=== PATIENT | male | born 1945 | race Caucasian/White ===

== ENCOUNTER 2018-11-13 13:46 | Emergency (ER) | payer BC, MEDICARE ==
--- NOTE | 2018-11-13 14:51 | ED ---
Lower Extremity Injury HPI - General Chief Complaint: Extremity Injury, Lower Stated Complaint: Bump on leg Time Seen by Provider: 11/13/18 14:18 Source: patient Mode of arrival: wheelchair Limitations: no limitations - History of Present Illness Initial Comments: Patient is a 73-year-old male complaining of right lower leg pain x one week after falling onto his front step. Admits to having a few abrasions along the lower leg and mild pain present. Patient states his pain is still there and there is some mild swelling present. Patient and patient's is concerned for a DVT. Patient admits to having A-fib and began on eliquest. Denies history of DVTs. Patient denies shortness of breath, chest pain. Patient has no other complaints at this time. - Related Data Allergies Allergy/AdvReac Type Severity Reaction Status Date / Time No Known Allergies Allergy Verified 11/13/18 14:05 Review of Systems ROS Statement: Those systems with pertinent positive or pertinent negative responses have been documented in the HPI. ROS Other: All systems not noted in ROS Statement are negative. Past Medical History Past Medical History: Atrial Fibrillation, Hypertension, Renal Disease History of Any Multi-Drug Resistant Organisms: None Reported Past Psychological History: No Psychological Hx Reported Smoking Status: Former smoker Past Alcohol Use History: None Reported Past Drug Use History: None Reported General Exam - General Exam Comments Initial Comments: GENERAL: Well-appearing, well-nourished and in no acute distress. HEAD: Atraumatic, normocephalic. EYES: Pupils equal round and reactive to light, extraocular movements intact, sclera anicteric, conjunctiva are normal. ENT: TMs normal, nares patent, oropharynx clear without exudates. Moist mucous membranes. NECK: Normal range of motion, supple without lymphadenopathy or JVD. LUNGS: Breath sounds clear to auscultation bilaterally and equal. No wheezes rales or rhonchi. HEART: Regular rate and rhythm without murmurs, rubs or gallops. ABDOMEN: Soft, nontender, normoactive bowel sounds. No guarding, no rebound. No masses appreciated. : Deferred EXTREMITIES: Normal range of motion, no pitting or edema. Mild pain over the medial aspect of the right tibia. Very small hematoma present. No erythema. No clubbing or cyanosis. NEUROLOGICAL: Cranial nerves II through XII grossly intact. Normal speech, normal gait. PSYCH: Normal mood, normal affect. SKIN: Warm, Dry, normal turgor, no rashes or lesions noted. Limitations: no limitations Course Vital Signs 11/13/18 14:02 Temperature 98.0 F Pulse Rate 70 Respiratory 18 Rate Blood Pressure 139/78 O2 Sat by Pulse 99 Oximetry Medical Decision Making - Medical Decision Making Patient is a 73-year-old male complaining of right lower leg pain after falling onto his porch step one week ago. Patient reports an increase in lower leg pain since the incident and is concerned for DVT. Patient has history of A. fib and is currently on eliquest. Right Lower leg x-ray shows no acute findings. Patient was counseled on hematoma. Discussed return parameters. Patient discharged home. Disposition Clinical Impression: Contusion of lower leg Disposition: HOME SELF-CARE Condition: Stable Instructions (If sedation given, give patient instructions): Contusion in Adults (ED) Additional Instructions: Please return to the Emergency Department if symptoms worsen or any other concerns. Is patient prescribed a controlled substance at d/c from ED?: No Referrals: Pelon Onofre III, MD [Primary Care Provider] - 1-2 days
--- NOTE | 2018-11-13 14:54 | XR ---
EXAMINATION TYPE: XR tibia fibula RT DATE OF EXAM: 11/13/2018 CLINICAL HISTORY: Right anterior tibia/fibula palpable abnormality. TECHNIQUE: Two views of the right leg are obtained. COMPARISON: None. FINDINGS: There is no acute fracture or dislocation seen in the right tibia or fibula. The right kn ee and ankle joints demonstrate mild joint space narrowing with mild tricompartmental osteophytes of the right knee. Overall there is mild osseous demineralization present. The overlying soft tissue oscar ears unremarkable. IMPRESSION: There is no acute fracture or dislocation seen in the right tibia or fibula. The palpabl e abnormality is not apparent on x-ray and creates no osseous erosion or periosteal reaction. This co uld be further evaluated with targeted ultrasound if there is further clinical concern.
[2018-11-13 15:36] VITALS: BP 131/83; PULSE 66; RESP 16; TEMP 98.1
== END 2018-11-13 15:38 | disposition home or self-care (01) ==
LOC: EC 13:46
DX: S80.11XA Contusion of right lower leg, initial encounter (principal); I48.91 Unspecified atrial fibrillation; Z87.891 Personal history of nicotine dependence; Z79.01 Long term (current) use of anticoagulants; W10.9XXA Fall (on) (from) unspecified stairs and steps, initial encounter; Y92.009 Unspecified place in unspecified non-institutional (private) residence as the place of occurrence of the external cause
CPT/HCPCS: 99283

== ENCOUNTER 2019-03-18 06:01 | Day surgery (SDC) | payer MEDICARE ==
[~2019-03-18 06:01] MED LIST: ALPRAZolam 0.25 MG TAB PO PRN; ALPRAZolam 0.5 MG TAB PO PRN; ASPIRIN 325 MG TAB PO STA; ATORVASTATIN 80 MG TAB PO STA; NITROGLYCERIN SL TABS 0.4 MG TAB SUBLINGUAL PRN; SODIUM CHLORIDE 0.9% 1,000 ML in EMPTY BAG 1 BAG IV ONE
[2019-03-18] MEDS: SODIUM CHLORIDE 0.9% 1,000 ML IV SCH ×2 (06:12→09:51)
[2019-03-18] MEDS ORDERED: VERAPAMIL 2.5 MG/ML 2 ML AMP ONE (07:31)
[2019-03-18] MEDS ORDERED: HEPARIN SODIUM 1,000 UN/ML (10ML VL) ONE (07:31)
[2019-03-18] MEDS ORDERED: LIDOCAINE 1% INJ 10MG/ML (20 ML MDV) ONE (07:31)
[2019-03-18] MEDS ORDERED: MIDAZOLAM PF (FBP) 2 MG/2 ML VIAL IV ONE (07:54)
[2019-03-18] MEDS ORDERED: LIDOCAINE 1% INJ 10MG/ML (20 ML MDV) SQ ONE (07:56)
[2019-03-18] MEDS: HEPARIN SODIUM 1,000 UN/ML (10ML VL) IV ONE ×2 (07:59→08:41)
[2019-03-18] MEDS: VERAPAMIL SYRINGE (5 MG/10 ML) INTRAARTER ONE ×2 (07:59→08:41)
[2019-03-18] MEDS ORDERED: CLOPIDOGREL 75 MG TAB ONE (08:27)
[2019-03-18] MEDS ORDERED: CLOPIDOGREL 75 MG TAB PO ONE (08:29)
[2019-03-18] MEDS: NITROGLYCERIN 1000MCG/10ML SYRINGE INTRACORON ONE ×2 (08:31→08:39)
[2019-03-18] MEDS ORDERED: IOPAMIDOL-370 125ML BTL INJ ONE ×3 (08:32→08:39)
[2019-03-18] MEDS ORDERED: ATROPINE SULFATE 0.1 MG/ML 10ML SYRINGE IV PRN (08:48)
[2019-03-18] MEDS ORDERED: NITROGLYCERIN SL TABS 0.4 MG TAB SUBLINGUAL PRN (08:48)
[2019-03-18] MEDS ORDERED: MAG HYDROX/AL HYDROX/SIMETH 30 ML CUP PO PRN (08:48)
[2019-03-18] MEDS ORDERED: RX INFO: IV CONTRAST WAS GIVEN 1 EACH MISC MISCELLANE PRN (08:48)
[2019-03-18] MEDS ORDERED: ZOLPIDEM 5 MG TAB PO PRN (08:48)
[2019-03-18] MEDS ORDERED: SODIUM CHLORIDE 0.9% 1,000 ML IV SCH (09:00)
--- NOTE | 2019-03-18 09:25 | CC ---
CARDIAC CATHETERIZATION REPORT CARDIAC CATHETERIZATION AND PERCUTANEOUS CORONARY INTERVENTION: DATE OF SERVICE: March 18, 2019 PERFORMING PHYSICIAN: Koko Carter MD, bankruptcy paralegal. PROCEDURE PERFORMED: 1. Selective right and left coronary angiogram. 2. Left heart catheterization. 3. Successful stenting of the . INDICATION: This is a pleasant 73-year-old gentleman with history of hypertension and dyslipidemia who was experiencing symptoms of chest discomfort and underwent myocardial perfusion imaging stress test and that revealed an anterior ischemia. Because of that, a heart catheterization was advised. APPROACH: Right radial artery. COMPLICATION: None. LEVEL OF SEDATION: Moderate with sedation length of 46 minutes. PROCEDURE DESCRIPTION: After obtaining an informed consent, the patient was brought to the cardiac produce laborer. The right radial artery was cannulated using micropuncture technique. Then I placed a 6- [place] sheath. I gave the patient 8000 units of heparin IV and 2 mg of verapamil IA. Subsequently I did perform selective right and left coronary angiogram using JR4 and JL3.5 catheters. Left heart catheterization was performed using pigtail catheter. The procedure after that I did intervene on the LAD, please see a separate paragraph for that. SELECTIVE CORONARY ANGIOGRAM: 1. The right coronary artery is a large caliber vessel and it is a dominant vessel. The RCA in the proximal portion has intermediate to severe lesion appeared to be in the range of 50% to 60%. The mid RCA has mild disease only and distally appeared to be normal and bifurcates into PDA and PLV branches, both appeared to be angiographically normal. 2. The left main is angiographically normal. It bifurcates into left circumflex and left anterior descending artery. 3. The left circumflex is a medium caliber vessel. It is a nondominant vessel. The proximal left circumflex appeared to be normal and gives rise into the first OM branch, which is intermediate caliber vessel and seems to be normal. The mid circumflex appeared to be subtotally occluded just after the bifurcation of the second OM branch which is small caliber vessel. 4. The LAD: The proximal LAD appeared to be angiographically normal. It gives rise into the first diagonal branch which seems to be normal. The mid LAD has a critical lesion in the range of 99.9%. The LAD distally, the LAD distal to that has another lesion in the range of 60%. The LAD distally appeared to be normal. HEMODYNAMICS: The LVEDP was 8 to 12 mmHg without significant gradient across the aortic valve. PCI OF THE LAD: Anticoagulation was initiated using heparin and ACT was checked. The ACT was before we engaged the guide in. Subsequently I did engage the left main using JL3.5 guide. After that I did wire the LAD using a whisper wire. I attempted doing balloon angioplasty initially using 3.0 x 12 mm balloon but the balloon will not cross the lesion, but I was able to cross the lesion with 1.5 x 12 mm balloon which was inflated in the proximal to mid LAD at the lesion at 10 to 12 atmospheres for 20 seconds. After that, I did advance a 3.5 x 18 mm Xience drug-eluting stent where the stent was positioned under fluoroscopy guidance and deployed under 12 atmospheres for 20 seconds. The following angiogram showed excellent angiographic results. There was a lesion distal to the stent appeared to be in the range of 60%. We will treat medically for now. CONCLUSION: 1. Intermittent episodes of chest discomfort. 2. Abnormal myocardial perfusion imaging stress test with evidence of anterior ischemia. 3. 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 There was intermediate to severe disease involving the mid to distal left anterior descending artery. 4. Intermediate disease involving the proximal right coronary artery. 5. Successful stenting of the mid left anterior descending artery using 3.5 x 18 mm Xience PALMER with an excellent angiographic result. POSTPROCEDURE MANAGEMENT: 1. Maximize medical treatment. 2. Risk factor modifications. 3. Follow up with the patient. AURORA / DOUGLASN: [id number] /
[2019-03-18] MEDS: LABETALOL 200 MG TAB PO SCH ×2 (09:49→20:55)
[2019-03-18] MEDS: ASPIRIN 325 MG TAB PO SCH (09:49)
[2019-03-18] MEDS: amLODIPine 10 MG TAB PO SCH (09:49)
[2019-03-18] MEDS: AMIODARONE 100 MG TAB PO SCH (09:49)
[2019-03-18] MEDS: POTASSIUM CHLORIDE ER 20 MEQ TAB.ER PO SCH ×2 (09:50→20:10)
[2019-03-18] MEDS: PRAVASTATIN SODIUM 40 MG TAB PO SCH (09:50)
[2019-03-18] MEDS: LOSARTAN 50 MG TAB PO SCH ×2 (09:50→20:10)
[2019-03-18] MEDS: HYDROCHLOROTHIAZIDE 25 MG TAB PO SCH (10:00)
[2019-03-18] MEDS ORDERED: ACETAMINOPHEN TAB 325 MG TAB PO PRN (12:44)
[2019-03-18 14:12] VITALS: BMI 25.1
[2019-03-18 15:52] VITALS: RESP 18
[2019-03-18] MEDS: HYDROmorphone 1 MG/ML 1 ML SYRINGE IVP PRN ×2 (17:32→21:08)
[2019-03-18] MEDS ORDERED: ZOLPIDEM 5 MG TAB PO SCH (21:00)
[2019-03-19] MEDS: SODIUM CHLORIDE 0.9% 1,000 ML IV SCH (03:33)
[2019-03-19 07:24] LABS: Basophils % (A) 1 %; Eosinophils # (A) 0.2 k/uL (0-0.7); Eosinophils % (A) 3 %; HCT 36.7 % (39.0-53.0); HGB 12.6 gm/dL (13.0-17.5); Lymphocytes # (A) 1.3 k/uL (1.0-4.8); Lymphocytes % (A) 24 %; MCH 31.5 pg (25.0-35.0); MCHC 34.5 g/dL (31.0-37.0); MCV 91.5 fL (80.0-100.0); Mean Platelet Volume 6.4; Monocytes # (A) 0.4 k/uL (0-1.0); Monocytes % (A) 7 %; Neutrophils # (A) 3.5 k/uL (1.3-7.7); Neutrophils % (A) 63 %; Platelet Count 231 k/uL (150-450); RBC 4.01 m/uL (4.30-5.90); RDW 12.9 % (11.5-15.5); WBC 5.5 k/uL (3.8-10.6)
[2019-03-19 07:44] LABS: Potassium 3.7 mmol/L (3.5-5.1)
[2019-03-19 08:40] VITALS: BP 123/66; PULSE 76; TEMP 98.3
[2019-03-19] MEDS: LOSARTAN 50 MG TAB PO SCH (08:42)
[2019-03-19] MEDS: ASPIRIN 325 MG TAB PO SCH (08:42)
[2019-03-19] MEDS: PRAVASTATIN SODIUM 40 MG TAB PO SCH (08:42)
[2019-03-19] MEDS: AMIODARONE 100 MG TAB PO SCH (08:42)
[2019-03-19] MEDS: amLODIPine 10 MG TAB PO SCH (08:43)
[2019-03-19] MEDS: POTASSIUM CHLORIDE ER 20 MEQ TAB.ER PO SCH (08:43)
[2019-03-19] MEDS: LABETALOL 200 MG TAB PO SCH (08:43)
[2019-03-19] MEDS: HYDROCHLOROTHIAZIDE 25 MG TAB PO SCH (08:43)
[2019-03-19] MEDS ORDERED: CLOPIDOGREL 75 MG TAB PO SCH (09:00)
--- NOTE | 2019-03-19 09:05 | DS ---
DISCHARGE SUMMARY DATE OF ADMISSION: March 18, 2019 DATE OF DISCHARGE: March 19, 2019 BRIEF HISTORY: This is a pleasant 73-year-old gentleman who was experiencing chest discomfort, concerning for angina. He underwent myocardial perfusion imaging stress test and that revealed an anterior ischemia. Because of that, a heart catheterization was advised. The heart catheterization revealed critical disease involving the mid left anterior descending artery, where the patient underwent successful stenting of the mid LAD with an excellent angiographic result and without any complication. On followup with the patient today, he is doing good. He is asymptomatic. He did have some hematoma in the forearm yesterday and pressure was held and on followup with him today, the hematoma is much better. He does have good right radial pulse. He is on oral anticoagulation with Eliquis, which I am going to hold at this point only for few days until I see him in the office just to make sure the hematoma is not worsening on anticoagulation. The patient is going to be discharged home and I will follow up with the patient next week in the office. MMODL / DOUGLASN: [id number] /
== END 2019-03-19 10:00 | disposition home or self-care (01) ==
LOC: CATHCVL 06:01 → 3SCARD 08:44 → CATHCVL 03-19 10:00
PROVIDERS: ATTEND Internal Medicine Interventional Cardiology
DX: I25.110 Atherosclerotic heart disease of native coronary artery with unstable angina pectoris (principal); I10 Essential (primary) hypertension; I48.0 Paroxysmal atrial fibrillation; E78.5 Hyperlipidemia, unspecified; E78.00 Pure hypercholesterolemia, unspecified; Z72.0 Tobacco use; Z82.49 Family history of ischemic heart disease and other diseases of the circulatory system; Z79.01 Long term (current) use of anticoagulants; Z79.899 Other long term (current) drug therapy
CPT/HCPCS: 93458; 85347; 80048; 85025; C9600; C1769 ×2; C1887; C1725 ×3; C1874; C1894; J2001; J1644; J1170; Q9967; J2250

== ENCOUNTER → 2022-10-26 | Outpatient (CLI) | payer MEDICARE ==
[2022-10-27 02:05] LABS: African American GFR (CKD) 66.3 (60.0-200.0); Anion Gap 12.6 mmol/L (10.00-18.00); Blood Urea Nitrogen 19.4 mg/dL (9.0-27.0); Carbon Dioxide 21.4 mmol/L (20.0-27.5); Non-African American GFR(CKD) 57.2 (60.0-200.0); Potassium 4.5 mmol/L (3.5-5.5)
[2022-10-27 02:10] LABS: HCT 35.9 % (39.6-50.0); HGB 11.6 g/dL (13.0-17.0); MCH 30.7 pg (27.0-32.0); MCHC 32.3 g/dL (32.0-37.0); Mean Platelet Volume 10.9 fL (9.5-12.2); NRBC Per 100 WBC 0 /100 WBCS (0.0-0.0); Platelet Count 215 X 10*3/uL (140-440); RBC 3.78 X 10*6/uL (4.40-5.60); RDW 14.1 % (11.5-14.5); WBC 5.48 X 10*3/uL (4.50-10.00)
== END | disposition home or self-care (01) ==
LOC: LABWHC1 11:58
PROVIDERS: ATTEND Internal Medicine Interventional Cardiology
DX: Z01.812 Encounter for preprocedural laboratory examination (principal); I25.10 Atherosclerotic heart disease of native coronary artery without angina pectoris
CPT/HCPCS: 36415; 80051; 82565; 84520; 85027

== ENCOUNTER 2022-11-14 08:56 | Day surgery (SDC) | payer MEDICARE ==
[~2022-11-14 08:56] MED LIST changes: +HEPARIN SODIUM,PORCINE 10,000 UNIT in SODIUM CHLORIDE 0.9% 1,000 ML IRRIGATION PRN; +HEPARIN SODIUM,PORCINE 2,500 UNIT in SODIUM CHLORIDE 0.9% 250 ML IRRIGATION PRN; -SODIUM CHLORIDE 0.9% 1,000 ML in EMPTY BAG 1 BAG IV ONE; +SODIUM CHLORIDE 0.9% 1,000 ML in EMPTY BAG 1 BAG IV SCH
[2022-11-14] MEDS ORDERED: SODIUM CHLORIDE 0.9% 1,000 ML IV ONE (09:07)
[2022-11-14 09:17] VITALS: RESP 16; TEMP 97.8
[2022-11-14] MEDS ORDERED: VERAPAMIL 2.5 MG/ML 2 ML AMP ONE (09:36)
[2022-11-14] MEDS ORDERED: HEPARIN SODIUM 1,000 UN/ML (10ML VL) ONE (09:45)
[2022-11-14] MEDS ORDERED: MIDAZOLAM 2 MG/2 ML VIAL IVP ONE (10:02)
[2022-11-14] MEDS ORDERED: LIDOCAINE 1% INJ 10MG/ML (5 ML VIAL-PF) SQ ONE (10:02)
[2022-11-14] MEDS ORDERED: VERAPAMIL SYRINGE (5 MG/10 ML) INTRAARTER ONE (10:05)
[2022-11-14] MEDS ORDERED: HEPARIN SODIUM 1,000 UN/ML (10ML VL) IV ONE (10:06)
[2022-11-14] MEDS ORDERED: IOPAMIDOL-370 100ML BTL INJ ONE (10:21)
[2022-11-14] MEDS ORDERED: RX INFO: IV CONTRAST WAS GIVEN 1 EACH MISC MISCELLANE PRN (10:23)
--- NOTE | 2022-11-14 10:28 | P.PCN ---
Date of Procedure: 11/14/22 Operative Findings: CARDIAC CATHETERIZATION PERFORMING PHYSICIAN: Koko Carter MD, RPVI PROCEDURE PERFORMED: 1. Selective right and left coronary angiogram 2. Left heart catheterization 3. Ultrasound-guided access of the right radial artery INDICATION: Chest discomfort concerning for unstable angina in this 77-year-old gentleman who is known to have CAD and prior stenting of the LAD COMPLICATION: None APPROACH: Right radial artery LEVEL OF SEDATION: Moderate with a sedation length of 20 minutes PROCEDURE DESCRIPTION: After obtaining an informed consent, the patient was brought to cardiac process laboratory specialist. Local anesthesia was performed using lidocaine subcutaneously. The right radial artery was cannulated using Seldinger technique, the guidewire passed easily, following that we advanced a 5-[place] sheath dilator assembly, the wire and dilator were removed and sheath was flushed. Following that, 2 mg of verapamil along with 3000 unit heparin were given. Selective right and left coronary angiogram using a 6-[place] JR4 and JL 3.5 catheters. Following that we did left heart catheterization using 6-[place] pigtail catheter. The procedure was completed there was no complication. SELECTIVE CORONARY ANGIOGRAM: The right coronary artery: Large-caliber vessel and a dominant vessel. The RCA has intermediate lesion in the proximal portion and intermediate lesion in the midportion. Both lesions appears to be the same as before Left main: Is angiographically normal did bifurcates into an LCx and LAD The left circumflex: Large caliber vessel and nondominant vessel. The LCx appeared to have mild disease only. The left anterior descending artery: The proximal LAD is a stented and the stent appeared to be patent. The mid LAD has mild disease only and the LAD distally has mild disease only as well HEMODYNAMICS: The LVEDP was 10 mmHg with no significant gradient across aortic valve CONCLUSION: 1. Intermediate disease involving the proximal and mid RCA appears to be unchanged compared to before 2. Normal left-sided filling pressure POSTPROCEDURE MANAGEMENT: Medical treatment
[2022-11-14] MEDS ORDERED: SODIUM CHLORIDE 0.9% 1,000 ML IV SCH (10:30)
[2022-11-14 14:48] VITALS: BP 155/74; PULSE 55
== END 2022-11-14 14:00 | disposition home or self-care (01) ==
LOC: CATHCVL 08:56
PROVIDERS: ATTEND Internal Medicine Interventional Cardiology
DX: I25.10 Atherosclerotic heart disease of native coronary artery without angina pectoris (principal); E78.5 Hyperlipidemia, unspecified; I10 Essential (primary) hypertension; F17.210 Nicotine dependence, cigarettes, uncomplicated; I48.0 Paroxysmal atrial fibrillation; I38 Endocarditis, valve unspecified; Z79.01 Long term (current) use of anticoagulants; Z95.5 Presence of coronary angioplasty implant and graft; Z82.49 Family history of ischemic heart disease and other diseases of the circulatory system; Z79.82 Long term (current) use of aspirin; Z79.899 Other long term (current) drug therapy
CPT/HCPCS: 93458; 76937; C1769; C1894; C1887; J2250; J2001; J1644; Q9967